=== PATIENT | male | born 1950 | race Caucasian/White ===

== ENCOUNTER 2021-08-19 12:00 | Inpatient (IN) ==
[2021-08-19] MEDS ORDERED: Ketorolac 30 MG/ML VIAL IVP ONE (17:09)
[2021-08-19 17:50] LABS: Hematocrit 31.1 % (37.5-50.1); Hemoglobin 10.1 g/dL (12.9-16.9); Mean Corpuscular HGB Conc 32.5 g/dL (31.6-35.5); Mean Corpuscular Hemoglobin 28.9 pg (28.0-33.3); Mean Corpuscular Volume 88.9 fL (83.0-100.0); Mean Platelet Volume 9.4 fL (9.4-12.4); Platelet Count 186 K/mcL (140-400); Red Cell Distribution Width 15.1 % (11.5-14.5); White Blood Count 9.6 K/mcL (4.3-11.1)
[2021-08-19 18:07] LABS: BUN/Creatinine Ratio 29 (6-26); Blood Urea Nitrogen 15 mg/dL (8-23); Calcium 8.7 mg/dL (8.6-10.3); Carbon Dioxide 24 mEq/L (23-29); Chloride 98 mEq/L (98-107); Glucose 81 mg/dL (70-105); Magnesium 1.8 mg/dL (1.6-2.6); Osmolality,Calculated 278 (280-300); Potassium 3.9 mEq/L (3.5-5.1); Sodium 134 mEq/L (136-145); Troponin I 0.03 ng/mL (< 0.04); eGFR For African Americans > 60 (> 60); eGFR For Non-African Americans > 60 (> 60)
[2021-08-19] MEDS ORDERED: Isovue-370 500 ML BOTTLE IVP ONE (18:31)
[2021-08-19] MEDS: *HR* HYDROcodone/Acet 7.5/325 mg TABLET PO PRN (18:39)
[2021-08-19] MEDS: diazePAM 2 MG TABLET PO PRN (21:06)
[2021-08-19] MEDS: Metoprolol XL (24 HR) Succ 50 MG TAB.ER.24H PO SCH (21:06)
[2021-08-19] MEDS: Sennosides/Docusate Sodium TABLET PO SCH (21:07)
[2021-08-20] MEDS: *HR* HYDROcodone/Acet 7.5/325 mg TABLET PO PRN ×4 (01:23→13:57)
[2021-08-20 04:42] LABS: Hematocrit 27.4 % (37.5-50.1); Hemoglobin 8.8 g/dL (12.9-16.9); Mean Corpuscular HGB Conc 32.1 g/dL (31.6-35.5); Mean Corpuscular Hemoglobin 28.7 pg (28.0-33.3); Mean Corpuscular Volume 89.3 fL (83.0-100.0); Mean Platelet Volume 9.3 fL (9.4-12.4); Platelet Count 160 K/mcL (140-400); Red Blood Count 3.07 M/mcL (4.19-5.50); Red Cell Distribution Width 15.3 % (11.5-14.5); White Blood Count 7.4 K/mcL (4.3-11.1)
[2021-08-20 04:59] LABS: Alanine Aminotransferase 24 Units/L (7-52); Albumin 2.9 g/dL (3.5-5.7); Albumin/Globulin Ratio 1.1 (1.1-2.2); Alkaline Phosphatase 99 Units/L (34-104); Aspartate Amino Transferase 15 Units/L (13-39); BUN/Creatinine Ratio 28 (6-26); Bilirubin,Total 0.3 mg/dL (0.3-1.0); Blood Urea Nitrogen 16 mg/dL (8-23); Calcium 8.6 mg/dL (8.6-10.3); Carbon Dioxide 26 mEq/L (23-29); Chloride 101 mEq/L (98-107); Globulin 2.7 g/dL (2.4-3.5); Glucose 96 mg/dL (70-105); Magnesium 1.8 mg/dL (1.6-2.6); Osmolality,Calculated 281 (280-300); Potassium 3.5 mEq/L (3.5-5.1); Sodium 135 mEq/L (136-145); Total Protein 5.6 g/dL (6.4-8.9); eGFR For African Americans > 60 (> 60); eGFR For Non-African Americans > 60 (> 60)
[2021-08-20] MEDS: *HR* Enoxaparin 40 MG/0.4 ML SYRINGE SQ SCH (05:19)
[2021-08-20] MEDS: polyethylene glycoL 3350 17 GM POWD.PACK PO SCH (09:04)
[2021-08-20] MEDS: Cholecalciferol (D-3) 1,000 UNIT (25MCG) TABLET PO SCH (09:04)
[2021-08-20] MEDS: Multivit/Ca/Min/Fe/FA 1 TAB TABLET PO SCH (09:05)
[2021-08-20] MEDS: Vitamin B Complex/Vit C/Vit E 1 EACH TABLET PO SCH (09:05)
[2021-08-20] MEDS: Lisinopril-HCTZ 20-12.5mg TABLET PO SCH (09:05)
[2021-08-20] MEDS: Sennosides/Docusate Sodium TABLET PO SCH ×2 (09:05→20:02)
[2021-08-20] MEDS: Spironolactone 25 MG TABLET PO SCH (09:05)
[2021-08-20] MEDS: diazePAM 2 MG TABLET PO PRN ×2 (15:53→20:02)
[2021-08-20] MEDS: Metoprolol XL (24 HR) Succ 50 MG TAB.ER.24H PO SCH (20:02)
[2021-08-20] MEDS: *HR* HYDROcodone/Acet 10/325 mg TABLET PO PRN (20:02)
[2021-08-20 23:49] LABS: Bilirubin,Urine Negative (Negative); Blood,Urine Negative (Negative); Clarity,Urine Clear (Clear); Color,Urine Yellow (Yellow); Glucose,Urine (UA) Normal (Normal); Ketones,Urine 15 mg/dL (Negative); Leukocyte Esterase,Urine Negative (Negative); Nitrite,Urine Negative (Negative); Protein,Urine Negative (Neg-Trace); Specific Gravity,Urine 1.025 (1.010-1.025); Urobilinogen,Urine Normal (Normal)
[2021-08-21] MEDS: *HR* HYDROcodone/Acet 7.5/325 mg TABLET PO PRN ×3 (00:24→20:42)
[2021-08-21] MEDS: *HR* HYDROcodone/Acet 10/325 mg TABLET PO PRN ×3 (02:04→16:20)
[2021-08-21] MEDS: diazePAM 2 MG TABLET PO PRN ×3 (02:04→17:52)
[2021-08-21] MEDS: *HR* Enoxaparin 40 MG/0.4 ML SYRINGE SQ SCH (04:31)
[2021-08-21] MEDS: Vitamin B Complex/Vit C/Vit E 1 EACH TABLET PO SCH (07:57)
[2021-08-21] MEDS: Sennosides/Docusate Sodium TABLET PO SCH ×2 (07:57→20:41)
[2021-08-21] MEDS: Multivit/Ca/Min/Fe/FA 1 TAB TABLET PO SCH (07:57)
[2021-08-21] MEDS: Spironolactone 25 MG TABLET PO SCH (07:57)
[2021-08-21] MEDS: Cholecalciferol (D-3) 1,000 UNIT (25MCG) TABLET PO SCH (07:57)
[2021-08-21] MEDS: Lisinopril-HCTZ 20-12.5mg TABLET PO SCH (07:57)
[2021-08-21] MEDS: polyethylene glycoL 3350 17 GM POWD.PACK PO SCH (08:02)
[2021-08-21] MEDS ORDERED: Isovue-370 500 ML BOTTLE IVP ONE (15:24)
[2021-08-21] MEDS: Metoprolol XL (24 HR) Succ 50 MG TAB.ER.24H PO SCH (20:41)
[2021-08-22] MEDS: diazePAM 2 MG TABLET PO PRN ×3 (02:56→22:34)
[2021-08-22] MEDS: *HR* HYDROcodone/Acet 10/325 mg TABLET PO PRN ×2 (02:56→22:34)
[2021-08-22] MEDS: *HR* HYDROcodone/Acet 7.5/325 mg TABLET PO PRN ×4 (04:37→18:19)
[2021-08-22] MEDS: *HR* Enoxaparin 40 MG/0.4 ML SYRINGE SQ SCH (04:38)
[2021-08-22] MEDS: Cholecalciferol (D-3) 1,000 UNIT (25MCG) TABLET PO SCH (08:41)
[2021-08-22] MEDS: Sennosides/Docusate Sodium TABLET PO SCH ×2 (08:42→20:06)
[2021-08-22] MEDS: Spironolactone 25 MG TABLET PO SCH (08:42)
[2021-08-22] MEDS: polyethylene glycoL 3350 17 GM POWD.PACK PO SCH (08:42)
[2021-08-22] MEDS: Lisinopril-HCTZ 20-12.5mg TABLET PO SCH (08:42)
[2021-08-22] MEDS: Multivit/Ca/Min/Fe/FA 1 TAB TABLET PO SCH (08:42)
[2021-08-22] MEDS: Vitamin B Complex/Vit C/Vit E 1 EACH TABLET PO SCH (08:42)
[2021-08-22] MEDS: Metoprolol XL (24 HR) Succ 50 MG TAB.ER.24H PO SCH (20:06)
[2021-08-23] MEDS: *HR* Enoxaparin 40 MG/0.4 ML SYRINGE SQ SCH (03:50)
[2021-08-23] MEDS: *HR* HYDROcodone/Acet 7.5/325 mg TABLET PO PRN ×4 (03:50→22:11)
[2021-08-23] MEDS: diazePAM 2 MG TABLET PO PRN (05:50)
[2021-08-23 06:01] LABS: Basophils # 0.1 K/mcL (0.0-0.2); Basophils % 0.6 %; Eosinophils # 0.1 K/mcL (0.0-0.6); Eosinophils % 0.8 %; Hematocrit 31.4 % (37.5-50.1); Hemoglobin 9.9 g/dL (12.9-16.9); Immature Granulocytes % 7.5 % (0-4); Lymphocytes # 1.5 K/mcL (0.6-4.6); Lymphocytes % 17.8 %; Mean Corpuscular HGB Conc 31.5 g/dL (31.6-35.5); Mean Corpuscular Hemoglobin 28.4 pg (28.0-33.3); Mean Corpuscular Volume 90.2 fL (83.0-100.0); Mean Platelet Volume 9.6 fL (9.4-12.4); Monocytes # 0.5 K/mcL (0.0-1.3); Monocytes % 5.5 %; Neutrophils # 5.8 K/mcL (1.6-8.9); Platelet Count 211 K/mcL (140-400); Red Blood Count 3.48 M/mcL (4.19-5.50); Segmented Neutrophils % 67.8 %; White Blood Count 8.5 K/mcL (4.3-11.1)
[2021-08-23 06:17] LABS: Anisocytosis 1+ (Not Present); BUN/Creatinine Ratio 19 (6-26); Blood Urea Nitrogen 10 mg/dL (8-23); Carbon Dioxide 25 mEq/L (23-29); Chloride 100 mEq/L (98-107); Glucose 101 mg/dL (70-105); Osmolality,Calculated 279 (280-300); Platelet Estimate Normal (Normal); Poikilocytosis 1+ (Not Present); Potassium 3.4 mEq/L (3.5-5.1); Sodium 135 mEq/L (136-145); eGFR For African Americans > 60 (> 60); eGFR For Non-African Americans > 60 (> 60)
[2021-08-23] MEDS: Lisinopril-HCTZ 20-12.5mg TABLET PO SCH (08:02)
[2021-08-23] MEDS: Cholecalciferol (D-3) 1,000 UNIT (25MCG) TABLET PO SCH (08:02)
[2021-08-23] MEDS: Multivit/Ca/Min/Fe/FA 1 TAB TABLET PO SCH (08:03)
[2021-08-23] MEDS: Vitamin B Complex/Vit C/Vit E 1 EACH TABLET PO SCH (08:03)
[2021-08-23] MEDS: *HR* HYDROcodone/Acet 10/325 mg TABLET PO PRN ×2 (08:03→15:53)
[2021-08-23] MEDS: Spironolactone 25 MG TABLET PO SCH (08:03)
[2021-08-23] MEDS: polyethylene glycoL 3350 17 GM POWD.PACK PO SCH (08:04)
[2021-08-23] MEDS: Sennosides/Docusate Sodium TABLET PO SCH ×2 (08:04→20:36)
[2021-08-23] MEDS: Metoprolol XL (24 HR) Succ 50 MG TAB.ER.24H PO SCH (20:34)
[2021-08-24] MEDS: *HR* HYDROcodone/Acet 7.5/325 mg TABLET PO PRN ×4 (02:01→21:58)
[2021-08-24] MEDS: *HR* Enoxaparin 40 MG/0.4 ML SYRINGE SQ SCH (05:51)
[2021-08-24] MEDS: Vitamin B Complex/Vit C/Vit E 1 EACH TABLET PO SCH (08:12)
[2021-08-24] MEDS: Cholecalciferol (D-3) 1,000 UNIT (25MCG) TABLET PO SCH (08:12)
[2021-08-24] MEDS: Multivit/Ca/Min/Fe/FA 1 TAB TABLET PO SCH (08:12)
[2021-08-24] MEDS: *HR* HYDROcodone/Acet 10/325 mg TABLET PO PRN ×2 (08:12→14:59)
[2021-08-24] MEDS: Sennosides/Docusate Sodium TABLET PO SCH ×2 (08:12→20:50)
[2021-08-24] MEDS: Lisinopril-HCTZ 20-12.5mg TABLET PO SCH (08:12)
[2021-08-24] MEDS: Spironolactone 25 MG TABLET PO SCH (08:12)
[2021-08-24] MEDS: polyethylene glycoL 3350 17 GM POWD.PACK PO SCH (08:16)
[2021-08-24] MEDS: diazePAM 2 MG TABLET PO PRN ×2 (11:32→17:59)
[2021-08-24] MEDS: Metoprolol XL (24 HR) Succ 50 MG TAB.ER.24H PO SCH (20:49)
[2021-08-25] MEDS: *HR* HYDROcodone/Acet 7.5/325 mg TABLET PO PRN ×5 (02:02→18:12)
[2021-08-25] MEDS: *HR* Enoxaparin 40 MG/0.4 ML SYRINGE SQ SCH (04:41)
[2021-08-25 05:00] LABS: Basophils # 0.1 K/mcL (0.0-0.2); Basophils % 0.7 %; Eosinophils # 0.1 K/mcL (0.0-0.6); Eosinophils % 1.6 %; Hematocrit 31.2 % (37.5-50.1); Hemoglobin 9.8 g/dL (12.9-16.9); Immature Granulocytes % 5.1 % (0-4); Lymphocytes # 1.3 K/mcL (0.6-4.6); Lymphocytes % 16.5 %; Mean Corpuscular HGB Conc 31.4 g/dL (31.6-35.5); Mean Corpuscular Hemoglobin 28.7 pg (28.0-33.3); Mean Corpuscular Volume 91.5 fL (83.0-100.0); Monocytes # 0.5 K/mcL (0.0-1.3); Neutrophils # 5.3 K/mcL (1.6-8.9); Platelet Count 214 K/mcL (140-400); Red Blood Count 3.41 M/mcL (4.19-5.50); Segmented Neutrophils % 69.1 %; White Blood Count 7.6 K/mcL (4.3-11.1)
[2021-08-25 05:13] LABS: BUN/Creatinine Ratio 18 (6-26); Blood Urea Nitrogen 12 mg/dL (8-23); Calcium 8.9 mg/dL (8.6-10.3); Carbon Dioxide 28 mEq/L (23-29); Chloride 99 mEq/L (98-107); Glucose 109 mg/dL (70-105); Osmolality,Calculated 278 (280-300); Potassium 3.8 mEq/L (3.5-5.1); Sodium 134 mEq/L (136-145); eGFR For African Americans > 60 (> 60); eGFR For Non-African Americans > 60 (> 60)
[2021-08-25 05:15] LABS: Anisocytosis 1+ (Not Present); Platelet Estimate Normal (Normal); Poikilocytosis 1+ (Not Present)
[2021-08-25] MEDS: Spironolactone 25 MG TABLET PO SCH (08:23)
[2021-08-25] MEDS: diazePAM 2 MG TABLET PO PRN ×2 (08:23→20:40)
[2021-08-25] MEDS: Sennosides/Docusate Sodium TABLET PO SCH ×2 (11:49→20:40)
[2021-08-25] MEDS: Cholecalciferol (D-3) 1,000 UNIT (25MCG) TABLET PO SCH (11:49)
[2021-08-25] MEDS: Lisinopril-HCTZ 20-12.5mg TABLET PO SCH (11:49)
[2021-08-25] MEDS: Multivit/Ca/Min/Fe/FA 1 TAB TABLET PO SCH (11:49)
[2021-08-25] MEDS: polyethylene glycoL 3350 17 GM POWD.PACK PO SCH (11:50)
[2021-08-25] MEDS: Vitamin B Complex/Vit C/Vit E 1 EACH TABLET PO SCH (11:50)
[2021-08-25] MEDS: Metoprolol XL (24 HR) Succ 50 MG TAB.ER.24H PO SCH (20:39)
[2021-08-25] MEDS: *HR* HYDROcodone/Acet 10/325 mg TABLET PO PRN (23:06)
[2021-08-26] MEDS: diazePAM 2 MG TABLET PO PRN ×2 (03:14→20:41)
[2021-08-26] MEDS: *HR* HYDROcodone/Acet 10/325 mg TABLET PO PRN ×4 (06:04→23:50)
[2021-08-26] MEDS: *HR* Enoxaparin 40 MG/0.4 ML SYRINGE SQ SCH (06:04)
[2021-08-26] MEDS: Cholecalciferol (D-3) 1,000 UNIT (25MCG) TABLET PO SCH (08:34)
[2021-08-26] MEDS: Lisinopril-HCTZ 20-12.5mg TABLET PO SCH (08:35)
[2021-08-26] MEDS: Spironolactone 25 MG TABLET PO SCH (08:35)
[2021-08-26] MEDS: Multivit/Ca/Min/Fe/FA 1 TAB TABLET PO SCH (08:35)
[2021-08-26] MEDS: Vitamin B Complex/Vit C/Vit E 1 EACH TABLET PO SCH (08:35)
[2021-08-26] MEDS: Sennosides/Docusate Sodium TABLET PO SCH ×2 (08:35→20:43)
[2021-08-26] MEDS: polyethylene glycoL 3350 17 GM POWD.PACK PO SCH (08:38)
[2021-08-26] MEDS: Metoprolol XL (24 HR) Succ 50 MG TAB.ER.24H PO SCH (20:43)
[2021-08-27] MEDS: diazePAM 2 MG TABLET PO PRN ×3 (02:17→18:15)
[2021-08-27] MEDS: *HR* Enoxaparin 40 MG/0.4 ML SYRINGE SQ SCH (06:55)
[2021-08-27] MEDS: *HR* HYDROcodone/Acet 10/325 mg TABLET PO PRN ×2 (06:56→19:00)
[2021-08-27] MEDS: Multivit/Ca/Min/Fe/FA 1 TAB TABLET PO SCH (12:16)
[2021-08-27] MEDS: Lisinopril-HCTZ 20-12.5mg TABLET PO SCH (12:16)
[2021-08-27] MEDS: Cholecalciferol (D-3) 1,000 UNIT (25MCG) TABLET PO SCH (12:16)
[2021-08-27] MEDS: Spironolactone 25 MG TABLET PO SCH (12:17)
[2021-08-27] MEDS: Vitamin B Complex/Vit C/Vit E 1 EACH TABLET PO SCH (12:17)
[2021-08-27] MEDS: polyethylene glycoL 3350 17 GM POWD.PACK PO SCH (12:17)
[2021-08-27] MEDS: Sennosides/Docusate Sodium TABLET PO SCH ×2 (12:17→21:30)
[2021-08-27] MEDS ORDERED: Melatonin 3 MG TABLET PO PRN (15:16)
[2021-08-27] MEDS: Metoprolol XL (24 HR) Succ 50 MG TAB.ER.24H PO SCH (21:21)
[2021-08-28] MEDS: Multivit/Ca/Min/Fe/FA 1 TAB TABLET PO SCH (08:26)
[2021-08-28] MEDS: polyethylene glycoL 3350 17 GM POWD.PACK PO SCH (08:26)
[2021-08-28] MEDS: Sennosides/Docusate Sodium TABLET PO SCH (08:26)
[2021-08-28] MEDS: Spironolactone 25 MG TABLET PO SCH (08:26)
[2021-08-28] MEDS: *HR* Enoxaparin 40 MG/0.4 ML SYRINGE SQ SCH (08:26)
[2021-08-28] MEDS: Vitamin B Complex/Vit C/Vit E 1 EACH TABLET PO SCH (08:26)
[2021-08-28] MEDS: Cholecalciferol (D-3) 1,000 UNIT (25MCG) TABLET PO SCH (08:26)
[2021-08-28] MEDS: Lisinopril-HCTZ 20-12.5mg TABLET PO SCH (08:26)
[2021-08-28] MEDS ORDERED: diazePAM 5 MG TABLET PO PRN (10:03)
[2021-08-28] MEDS ORDERED: Ondansetron ODT 4 MG TAB.RAPDIS SL ONE (11:52)
[2021-08-28] MEDS ORDERED: Sennosides/Docusate Sodium TABLET PO PRN (11:53)
[2021-08-28] MEDS ORDERED: Ondansetron ODT 4 MG TAB.RAPDIS SL PRN (12:01)
[2021-08-28] MEDS: diazePAM 2 MG TABLET PO PRN ×2 (14:11→22:22)
[2021-08-28] MEDS: *HR* HYDROcodone/Acet 10/325 mg TABLET PO PRN ×2 (16:07→23:00)
[2021-08-28] MEDS ORDERED: 0.9 % Sodium Chloride 500 ML IVC ONE (19:08)
[2021-08-28] MEDS: Metoprolol XL (24 HR) Succ 50 MG TAB.ER.24H PO SCH (20:53)
[2021-08-28] MEDS: 0.9 % Sodium Chloride 1,000 ML IVC SCH (20:56)
[2021-08-28] MEDS ORDERED: Melatonin 3 MG TABLET PO SCH (21:00)
[2021-08-29] MEDS: Vitamin B Complex/Vit C/Vit E 1 EACH TABLET PO SCH (07:45)
[2021-08-29] MEDS: Cholecalciferol (D-3) 1,000 UNIT (25MCG) TABLET PO SCH (07:45)
[2021-08-29] MEDS: Multivit/Ca/Min/Fe/FA 1 TAB TABLET PO SCH (07:45)
[2021-08-29] MEDS: *HR* Enoxaparin 40 MG/0.4 ML SYRINGE SQ SCH (07:46)
[2021-08-29] MEDS: Lisinopril-HCTZ 20-12.5mg TABLET PO SCH (07:46)
[2021-08-29] MEDS: polyethylene glycoL 3350 17 GM POWD.PACK PO SCH (07:46)
[2021-08-29] MEDS: Spironolactone 25 MG TABLET PO SCH (07:46)
[2021-08-29] MEDS: 0.9 % Sodium Chloride 1,000 ML IVC SCH (07:51)
[2021-08-29] MEDS: lisinopriL 10 MG TABLET PO SCH (10:51)
[2021-08-29] MEDS: tiZANidine 4 MG TABLET PO SCH (20:02)
[2021-08-29] MEDS: Melatonin 3 MG TABLET PO SCH (20:02)
[2021-08-29] MEDS: Metoprolol XL (24 HR) Succ 50 MG TAB.ER.24H PO SCH (20:02)
[2021-08-29] MEDS: *HR* HYDROcodone/Acet 10/325 mg TABLET PO PRN (23:39)
[2021-08-30] MEDS: traZODone 50 MG TABLET PO PRN ×2 (01:41→20:12)
[2021-08-30] MEDS: *HR* Enoxaparin 40 MG/0.4 ML SYRINGE SQ SCH (06:41)
[2021-08-30] MEDS: tiZANidine 4 MG TABLET PO SCH ×3 (08:55→20:12)
[2021-08-30] MEDS: polyethylene glycoL 3350 17 GM POWD.PACK PO SCH (08:55)
[2021-08-30] MEDS: lisinopriL 10 MG TABLET PO SCH (08:55)
[2021-08-30] MEDS: Vitamin B Complex/Vit C/Vit E 1 EACH TABLET PO SCH (08:55)
[2021-08-30] MEDS: Cholecalciferol (D-3) 1,000 UNIT (25MCG) TABLET PO SCH (08:55)
[2021-08-30] MEDS: Spironolactone 25 MG TABLET PO SCH (08:56)
[2021-08-30] MEDS: Multivit/Ca/Min/Fe/FA 1 TAB TABLET PO SCH (09:00)
[2021-08-30] MEDS: *HR* HYDROcodone/Acet 10/325 mg TABLET PO PRN ×2 (12:12→20:13)
[2021-08-30] MEDS: Metoprolol XL (24 HR) Succ 50 MG TAB.ER.24H PO SCH (20:13)
[2021-08-30] MEDS: Melatonin 3 MG TABLET PO SCH (20:13)
[2021-08-31] MEDS: *HR* Enoxaparin 40 MG/0.4 ML SYRINGE SQ SCH (05:02)
[2021-08-31 05:46] LABS: Hematocrit 29.1 % (37.5-50.1); Hemoglobin 9.2 g/dL (12.9-16.9); Mean Corpuscular HGB Conc 31.6 g/dL (31.6-35.5); Mean Corpuscular Volume 91.8 fL (83.0-100.0); Mean Platelet Volume 9.5 fL (9.4-12.4); Platelet Count 285 K/mcL (140-400); Red Blood Count 3.17 M/mcL (4.19-5.50); Red Cell Distribution Width 15.7 % (11.5-14.5); White Blood Count 4.6 K/mcL (4.3-11.1)
[2021-08-31 06:00] LABS: Alanine Aminotransferase 16 Units/L (7-52); Albumin 3.1 g/dL (3.5-5.7); Albumin/Globulin Ratio 1.2 (1.1-2.2); Alkaline Phosphatase 91 Units/L (34-104); Aspartate Amino Transferase 14 Units/L (13-39); BUN/Creatinine Ratio 20 (6-26); Bilirubin,Total 0.3 mg/dL (0.3-1.0); Blood Urea Nitrogen 14 mg/dL (8-23); Carbon Dioxide 28 mEq/L (23-29); Chloride 104 mEq/L (98-107); Globulin 2.5 g/dL (2.4-3.5); Glucose 94 mg/dL (70-105); Magnesium 1.5 mg/dL (1.6-2.6); Osmolality,Calculated 290 (280-300); Potassium 4.2 mEq/L (3.5-5.1); Sodium 140 mEq/L (136-145); Total Protein 5.6 g/dL (6.4-8.9); eGFR For African Americans > 60 (> 60); eGFR For Non-African Americans > 60 (> 60)
[2021-08-31] MEDS: tiZANidine 4 MG TABLET PO SCH ×3 (08:39→20:41)
[2021-08-31] MEDS: Multivit/Ca/Min/Fe/FA 1 TAB TABLET PO SCH (08:39)
[2021-08-31] MEDS: lisinopriL 10 MG TABLET PO SCH (08:40)
[2021-08-31] MEDS: Vitamin B Complex/Vit C/Vit E 1 EACH TABLET PO SCH (08:40)
[2021-08-31] MEDS: Spironolactone 25 MG TABLET PO SCH (08:40)
[2021-08-31] MEDS: Cholecalciferol (D-3) 1,000 UNIT (25MCG) TABLET PO SCH (08:40)
[2021-08-31] MEDS: polyethylene glycoL 3350 17 GM POWD.PACK PO SCH (09:26)
[2021-08-31] MEDS: *HR* HYDROcodone/Acet 10/325 mg TABLET PO PRN (14:26)
[2021-08-31 18:43] VITALS: O2SAT 95
[2021-08-31] MEDS: traZODone 50 MG TABLET PO PRN (20:42)
[2021-08-31] MEDS: Metoprolol XL (24 HR) Succ 50 MG TAB.ER.24H PO SCH (20:42)
[2021-08-31] MEDS: Melatonin 3 MG TABLET PO SCH (20:42)
[2021-08-31] MEDS: Magnesium Oxide 400 MG TABLET PO SCH (20:45)
[2021-09-01] MEDS: diazePAM 2 MG TABLET PO PRN (01:13)
[2021-09-01] MEDS: *HR* Enoxaparin 40 MG/0.4 ML SYRINGE SQ SCH (06:01)
[2021-09-01] MEDS: *HR* HYDROcodone/Acet 10/325 mg TABLET PO PRN (06:02)
[2021-09-01] MEDS: Magnesium Oxide 400 MG TABLET PO SCH (07:46)
[2021-09-01] MEDS: polyethylene glycoL 3350 17 GM POWD.PACK PO SCH (07:46)
[2021-09-01] MEDS: Spironolactone 25 MG TABLET PO SCH (07:47)
[2021-09-01] MEDS: lisinopriL 10 MG TABLET PO SCH (07:47)
[2021-09-01] MEDS: tiZANidine 4 MG TABLET PO SCH (07:48)
[2021-09-01] MEDS: Vitamin B Complex/Vit C/Vit E 1 EACH TABLET PO SCH (07:48)
[2021-09-01] MEDS: Cholecalciferol (D-3) 1,000 UNIT (25MCG) TABLET PO SCH (07:48)
[2021-09-01] MEDS: Multivit/Ca/Min/Fe/FA 1 TAB TABLET PO SCH (07:48)
[2021-09-01 08:01] VITALS: BP 129/74; PULSE 52; RESP 16; TEMP 98.4
== END 2021-09-01 14:49 | disposition home health service (06) | DRG 552 ==
LOC: INPGRE 16:11
PROVIDERS: ADMIT Family Medicine; ATTEND Family Medicine